=== PATIENT | female | born 1935 | race African-American/Black ===

== ENCOUNTER 2017-04-12 13:40 | Emergency (ER) | payer MEDICARE ==
[~2017-04-12] VITALS: Ht 149.9 cm; Wt 88.5 kg
[~2017-04-12 13:40] MED LIST: NIFE30TA7 PO; TRIA1CAP3 PO
[2017-04-12] MEDS ORDERED: ACYC5CRE2 TP (14:31)
[2017-04-12] MEDS ORDERED: VALA1000 PO (14:31)
--- NOTE | 2017-04-12 14:31 | PHYS DOC ---
Past Medical History Past Medical History: COPD, Hypertension Past Surgical History: , Hysterectomy Additional Past Surgical Histo: EYE SURGERY, Alcohol Use: Rarely Drug Use: None Adult General Chief Complaint Chief Complaint: INSECT BITE HPI HPI Patient is a 81 year old female with a history of diabetes and hypertension presents the ED complaining of insect bite to right forehead. States she had been having some itching sensation to her right forehead and then she woke up with a tiny cluster on her right forehead. States the redness has been spreading to scalp but only on the one side of her head. Does not remember having been bitten by anything. Denies discharge, drainage, headache, neck pain , photophobia, fever, n/v, chest pain, or shortness of breath. Review of Systems Review of Systems Constitutional: Denies fever or chills [] Eyes: Denies change in visual acuity, redness, or eye pain [] HENT: Denies nasal congestion or sore throat [] Respiratory: Denies cough or shortness of breath [] Cardiovascular: No additional information not addressed in HPI [] GI: Denies abdominal pain, nausea, vomiting, bloody stools or diarrhea [] : Denies dysuria or hematuria [] Musculoskeletal: Denies back pain or joint pain [] Integument: Complains of skin lesions to right forehead. [] Neurologic: Denies headache, focal weakness or sensory changes [] Endocrine: Denies polyuria or polydipsia [] All other systems were reviewed and found to be within normal limits, except as documented in this note. Allergies Allergies Allergies Coded Allergies Type Severity Reaction Last Updated Verified No Known Drug Allergies 12/22/14 No Physical Exam Physical Exam Constitutional: Well developed, well nourished, no acute distress, non-toxic appearance. [] HENT: Normocephalic, atraumatic, bilateral external ears normal, oropharynx moist, no oral exudates, nose normal. [] Eyes: PERRLA, EOMI, conjunctiva normal, no discharge. [] Neck: Normal range of motion, no tenderness, supple, no stridor. [] Cardiovascular:Heart rate regular rhythm, no murmur [] Lungs & Thorax: Bilateral breath sounds clear to auscultation [] Skin: Warm, dry, ERYTHEMATOUS VESICULAR RASH TO RIGHT FOREHEAD AND SCALP (NO OCULAR INVOLVEMENT) IN DERMATOMAL DISTRIBUTION CONSISTENT WITH SHINGLES. [] Neurologic: Alert and oriented X 3, normal motor function, normal sensory function, no focal deficits noted. [] Psychologic: Affect normal, judgement normal, mood normal. [] Current Patient Data Vital Signs Vital Signs Date Time Temp Pulse Resp B/P (MAP) Pulse Ox O2 Delivery O2 Flow Rate FiO2 04/12/17 14:00 97.8 68 18 98 Room Air 97.8 EKG EKG [] Radiology/Procedures Radiology/Procedures [] Course & Med Decision Making Course & Med Decision Making Pertinent Labs and Imaging studies reviewed. (See chart for details) []Pain/itching before rash appearance to right forehead. No ocular involvement. History and exam consistent with shingles. WIll treat with Valcyclovir outpatient. Discussed follow-up for re-evaluation this week. Patient states she will follow-up with her PCP this week. Discussed reasons to return to the ED. Patient understands and agrees with plan. Family at bedside. Dragon Disclaimer Dragon Disclaimer This electronic medical record was generated, in whole or in part, using a voice recognition dictation system. Departure Departure Impression: Primary Impression: Shingles Disposition: HOME, SELF-CARE Condition: IMPROVED Referrals: MIRZA KNIGHT MD (PCP) Patient Instructions: Shingles Scripts Acyclovir (ZOVIRAX) 5 Gm Cream..g. 1 KEVIN TP , #5 GM Prov: MAHAMED WEI 04/12/17 Valacyclovir Hcl (VALACYCLOVIR) 1,000 Mg Tablet 1 TAB PO BID for 10 Days, #20 TAB 0 Refills Prov: MAHAMED WEI 04/12/17 MAHAMED WEI Apr 12, 2017 14:31
[2017-04-12 14:35] VITALS: BP 184/84
== END 2017-04-12 14:37 | disposition home or self-care (01) ==
LOC: ER 13:40
DX: B02.9 Zoster without complications (principal); J44.9 Chronic obstructive pulmonary disease, unspecified; I10 Essential (primary) hypertension; E11.9 Type 2 diabetes mellitus without complications
CPT/HCPCS: 99283

== ENCOUNTER 2018-07-04 09:17 | Day surgery (SDC) | payer MEDICARE ==
[~2018-07-04] VITALS: Ht 149.9 cm; Wt 89.4 kg
[~2018-07-04 09:17] MED LIST changes: +ACYC5CRE2 TP; +ASPI325T8 PO; +BUPIVACAINE MPF 0.5% 30 ML VIAL. ONE; +GABA600T7 PO; +GLUC1TAB44 PO; +GLYCOPYRROLATE 1 MG/5 ML VIAL. IV ONE; +HYDROmorphone 2 MG/ML VIAL IV PRN; +IV RINGERS,LACTATED 1000ML 1,000 ML IV SCH; +LATA2.5D3 EACHEYE; +LIDOCAINE 1% PF 2 ML VIAL. ID PRN; +LIDOCAINE 1% PF 30 ML VIAL. ONE; +MOME13HF2 IH; +MORPHINE SULFATE 4 MG/ML VIAL. IV PRN; +MULT1TAB52 PO; +NIFE60TA16 PO; +ONDANSETRON PF 4 MG/2 ML VIAL. IV PRN; +PRED2.5T PO; +PRED5DRO16 EACHEYE; +PROCHLORPERAZINE 10 MG/2 ML VIAL. IV PRN; +VALA1000 PO; +fentaNYL PF VIAL 100 MCG/2 ML VIAL IV PRN
[2018-07-04 10:14] LABS: BASO % 1 % (0-3); EOS # 0.3 x10^3/uL (0.0-0.7); EOS % 6 % (0-3); HEMOGLOBIN 12.5 g/dL (12.0-15.5); LYMPH # 1.1 x10^3/uL (1.0-4.8); LYMPH % 23 % (24-48); MEAN CORPUSCULAR HEMOGLOBIN 27 pg (25-35); MEAN CORPUSCULAR HGB CONC 32 g/dL (31-37); MEAN CORPUSCULAR VOLUME 84 fL (79-100); MONO # 0.3 x10^3/uL (0.0-1.1); MONO % 7 % (0-9); NEUT # 2.9 x10^3uL (1.8-7.7); NEUT % 63 % (31-73); PLATELET COUNT 243 x10^3/uL (140-400); RED BLOOD COUNT 4.63 x10^6/uL (3.50-5.40); RED CELL DISTRIBUTION WIDTH 14.6 % (11.5-14.5); WHITE BLOOD COUNT 4.6 x10^3/uL (4.0-11.0)
[2018-07-04 10:25] LABS: CALCIUM 9.5 mg/dL (8.5-10.1); CREATININE 0.8 mg/dL (0.6-1.0); GFR 83.1; POTASSIUM 4.1 mmol/L (3.5-5.1)
[2018-07-04] MEDS ORDERED: LIDOCAINE 2% PF 5 ML VIAL. ONE (11:23)
[2018-07-04] MEDS ORDERED: DEXAMETHASONE SOD PHOS 20 MG/5 ML VIAL. ONE (11:23)
[2018-07-04] MEDS ORDERED: ONDANSETRON PF 4 MG/2 ML VIAL. ONE (11:23)
[2018-07-04] MEDS ORDERED: PROPOFOL 20 ML IV ONE (11:23)
--- NOTE | 2018-07-04 11:53 | PDOC4 ---
Operative Note Operative Note SURGEON: EVELIN PRE OP DIAGNOSIS: HAMMER TOE LEFT 2ND POST OP DX: SAME PROCEDURE: 2ND TOE AMPUTATION LEFT FOOT ANESTHESIA: MAC WITH LOCAL HEMOSTASIS: LEFT ANKLE TOURNIQUET AT 250MMHG EBL:1ML MATERIALS: 4-0 NYLON. NO IMPLANTS INTRAOPERATIVE FINDINGS: CONSISTENT WITH DIAGNOSIS PATIENT TOLERATED BOTH ANESTHESIA AND PROCEDURE WELL WITH VSS AND VSI TO LEFT FOOT MARGARET WATERS DPM Jul 04, 2018 11:53
[2018-07-04] MEDS ORDERED: ceFAZolin SODIUM 1 GM VIAL ONE (12:24)
[2018-07-04] MEDS ORDERED: POVIDONE-IODINE 10% TOPICAL OINTMENT 28GM TUBE. TP ONE (12:24)
[2018-07-04] MEDS ORDERED: HYDR-3164 PO (13:08)
[2018-07-04] MEDS ORDERED: HYDROcodone/APAP 5/325MG 1 TAB TABLET ONE (13:11)
[2018-07-04] MEDS ORDERED: HYDROcodone/APAP 5/325MG 1 TAB TABLET PO ONE (13:15)
[2018-07-04 13:40] VITALS: BP 147/68
--- NOTE | 2018-07-04 13:43 | OP ---
DATE OF SURGERY: 07/04/2018 PREOPERATIVE DIAGNOSIS: Painful hammertoe, left foot second digit. POSTOPERATIVE DIAGNOSIS: Painful hammertoe, left foot second digit. PROCEDURE: Second digit amputation to the level of the metatarsophalangeal joint, left foot. SURGEON: Virgilio Amezcua DPM. ANESTHESIA: MAC with local. HEMOSTASIS: Left ankle tourniquet at 250 mmHg. ESTIMATED BLOOD LOSS: 1 mL. INDICATIONS: The patient is an 83-year-old female with chronic recurrent pain to the second digit of the left foot. She also has a severe bunion deformity and remaining hammertoes; however, she has no pain other than the second digit discussed today. Discussed with patient the preoperative diagnosis possible risks, benefits and complications to include delayed healing, nonhealing, need for further surgery, transfer lesions, infection, DVT, pulmonary embolism. Also discussed alternate treatment options to include continued conservative treatment with extra depth shoe gear and accommodative padding as well as a more involved forefoot reconstructive surgery. The patient agreed to above procedure. No guarantees were made. Consent signed freely and put in chart. DESCRIPTION OF PROCEDURE: The patient was transported to the operating room via cart and placed on the operating table in supine position. The patient was given IV Ancef preoperatively. Timeout was taken to confirm the patient and surgery to be performed. A well-padded tourniquet was placed over the left ankle and a second ray block was given consisting of a 1:1 mixture of 1% lidocaine plain and 0.5% Marcaine plain, 10 mL to start. The left foot was then prepped and draped in the usual aseptic manner. Attention was directed to the second digit. Esmarch bandage was used to exsanguinate the left foot and left ankle tourniquet was inflated to 250 mmHg. Used a towel clamp to check anesthesia of the second toe and noted the patient was still feeling pain, thus given additional 10 mL of 1:1 mixture of 1% lidocaine plain and 0.5% Marcaine plain. She still had pain and thus used an additional 12 mL of 1% lidocaine plain. The patient then was achieved anesthesia and a tennis racquet incision was made at the base of the second digit to the left foot. The small vessels were cauterized and the second digit was disarticulated at the level of the metatarsophalangeal joint. There were no signs of infection or sinus tracking. The second metatarsal head was white, glistening within normal limits. The second digit was disarticulated and removed in toto and sent to pathology. The wound was then copiously irrigated with sterile saline and was reapproximated with 3-0 Vicryl and 4-0 nylon. The patient tolerated both anesthesia and procedure well, was transported to the PACU with vital signs stable and vascular status intact to the left foot. She is to be minimal weightbearing, bathroom privileges only. We will take x-rays in the PACU, postoperatively and postop instructions are in the chart. VIRGILIO AMEZCUA DPM DR: Kyra JOB#: [id number] / [id number]
--- NOTE | 2018-07-04 13:49 | RAD ---
EXAM: Left foot, 3 views. HISTORY: Postoperative evaluation. Pain. COMPARISON: None. FINDINGS: 3 views of the left foot are obtained. There has been left second phalanx amputation. There is surrounding soft tissue gas and an overlying bandage due to recent surgery. There is hallux valgus and mild first metatarsal phalangeal osteoarthritis. There are third and fourth hammertoe deformities. There is a tiny plantar spur and enthesopathy at Achilles insertion. IMPRESSION: 1. Left second phalanx amputation. There is stranding soft tissue gas due to relative recent surgery. 2. 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 3. Third and fourth hammertoe deformities. Electronically signed by: Joann Ribera MD (07/04/2018 1:46 PM) [facility]
--- NOTE | 2018-07-07 09:10 | PATHOLOGY ---
[facility] Accession Number: [id number] . 01 Material submitted: . LEFT 2ND TOE . 01 Clinical history: . Hammertoe . 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 . (JPM:mml; 07/06/2018) QLM/07/06/2018 . 02 Electronically signed: . Dinh Ulloa MD, Pathologist NPI- [id number] . 01 Gross description: . The specimen is received in formalin, labeled "Yanelis Su, left second toe", is a distal digit, disarticulated through the MPJ measuring 5.0 cm from the proximal skin resection margin to distal tip and up to 1.7 cm in width. Extending above the proximal skin margin is a segment of bone measuring 1.8 cm in length and consist of a concave articular surface measuring 1.0 x 1.0 cm (proximal bone margin). The specimen shows a hammertoe deformity of the middle interphalangeal joint with the overlying skin having a thickened area measuring 0.6 x 0.5 cm that is 1.7 cm from the proximal skin and approximately 3.2 cm from the proximal bone margin. The skin is samayoa-brown and the toenail is munguia-yellow. Sectioning through the skin lesion shows samayoa-white tissue with no discrete hemorrhage or necrosis. Binder Cutter tissue is submitted as follows: A1. Proximal skin margin A2. Proximal bone margin after decalcification. A3. Ulcer and underlying middle interphalangeal joint, after decalcification. (SWS; 07/04/2018) SHS/SHS . 02 Pathologist provided ICD-10: L85.8, M20.42 . 02 CPT . 112288, 335492 Specimen Comment: A courtesy copy of this report has been sent to Specimen Comment: [phone], . Specimen Comment: Report sent to / DR KNIGHT Performed at: [address] [facility], [place] [id number] MD Dmitry Gusman MD Phone: [phone] Performed at: [facility] [address] [place] [id number] MD Dinh Ulloa MD Phone: [phone]
== END 2018-07-04 13:55 | disposition home or self-care (01) ==
LOC: SURG 09:17
PROVIDERS: ATTEND Podiatrist Foot & Ankle Surgery
DX: M20.42 Other hammer toe(s) (acquired), left foot (principal); I10 Essential (primary) hypertension; M19.072 Primary osteoarthritis, left ankle and foot; J44.9 Chronic obstructive pulmonary disease, unspecified; Z90.710 Acquired absence of both cervix and uterus; Z79.899 Other long term (current) drug therapy; M35.3 Polymyalgia rheumatica; Z87.891 Personal history of nicotine dependence; Z88.1 Allergy status to other antibiotic agents
CPT/HCPCS: 28820; 36415; 73630; 80048; 85025; 88305; 88311; J0690; J2001; J2704; J3490; J1100; J2405

== ENCOUNTER 2019-03-06 04:28 | Inpatient (IN) | payer MEDICARE ==
[~2019-03-06] VITALS: Ht 152.4 cm; Wt 90.7 kg
[~2019-03-06 04:28] MED LIST changes: -BUPIVACAINE MPF 0.5% 30 ML VIAL. ONE; -GLYCOPYRROLATE 1 MG/5 ML VIAL. IV ONE; +HYDR-3164 PO; -HYDROmorphone 2 MG/ML VIAL IV PRN; -IV RINGERS,LACTATED 1000ML 1,000 ML IV SCH; -LIDOCAINE 1% PF 2 ML VIAL. ID PRN; -LIDOCAINE 1% PF 30 ML VIAL. ONE; -MORPHINE SULFATE 4 MG/ML VIAL. IV PRN; -ONDANSETRON PF 4 MG/2 ML VIAL. IV PRN; -PROCHLORPERAZINE 10 MG/2 ML VIAL. IV PRN; -fentaNYL PF VIAL 100 MCG/2 ML VIAL IV PRN
[2019-03-06 04:53] LABS: BASO % 1 % (0-3); EOS % 0 % (0-3); HEMATOCRIT 36.5 % (36.0-47.0); HEMOGLOBIN 11.8 g/dL (12.0-15.5); LYMPH # 0.7 x10^3/uL (1.0-4.8); LYMPH % 8 % (24-48); MEAN CORPUSCULAR HEMOGLOBIN 27 pg (25-35); MEAN CORPUSCULAR HGB CONC 32 g/dL (31-37); MEAN CORPUSCULAR VOLUME 84 fL (79-100); MONO # 0.4 x10^3/uL (0.0-1.1); MONO % 4 % (0-9); NEUT # 8.1 x10^3/uL (1.8-7.7); NEUT % 88 % (31-73); PLATELET COUNT 295 x10^3/uL (140-400); RED BLOOD COUNT 4.37 x10^6/uL (3.50-5.40); RED CELL DISTRIBUTION WIDTH 14.7 % (11.5-14.5); WHITE BLOOD COUNT 9.2 x10^3/uL (4.0-11.0)
[2019-03-06] MEDS ORDERED: IPRATRPIUM/ALBUTEROL 0.5/2.5MG 3 ML NEBU. NEB ONE (05:00)
[2019-03-06] MEDS ORDERED: methylPREDNISolone SOD SUCC PF 125 MG/2 ML VIAL. IV ONE (05:00)
[2019-03-06 05:03] LABS: CALCIUM 9.1 mg/dL (8.5-10.1); CREATININE 1.4 mg/dL (0.6-1.0); GFR 43.6; POTASSIUM 3.5 mmol/L (3.5-5.1)
--- NOTE | 2019-03-06 05:04 | RAD ---
PORTABLE CHEST 1V Clinical History: Hypoxia Technique: AP view of the chest was obtained at 03/06/2019 4:46 AM. Comparison: December 23, 2014. Findings: The heart is mildly enlarged. The pulmonary vessels are top normal limits in size. There is patchy opacity in the lung bases. Impression: Mild basal infiltrates could be discoid atelectasis or fluid overload. Electronically signed by: Juve Gloria III, MD (03/06/2019 5:01 AM) [facility]
[2019-03-06 05:08] LABS: ALBUMIN/GLOBULIN RATIO 0.7 (1.0-1.7); TOTAL BILIRUBIN 0.5 mg/dL (0.2-1.0); TOTAL PROTEIN 7.4 g/dL (6.4-8.2)
[2019-03-06 05:10] LABS: BASE EXCESS COOX 6 mmol/L (-3-3); HCO3 COOX 32 mmol/L (21-28); METHEMOGLOBIN 0.5 % (0.0-1.9); OXYHEMOGLOBIN 79.7 %; PCO2 COOX 52 mmHg (35-46); SAT O2 COOX 81 % (92-99)
[2019-03-06 05:11] LABS: PO2 COOX 47 mmHg (65-108)
--- NOTE | 2019-03-06 05:13 | PHYS DOC ---
Past Medical History Past Medical History: COPD, Hypertension Past Surgical History: , Hysterectomy Additional Past Surgical Histo: EYE SURGERY, Alcohol Use: Rarely Drug Use: None Adult General Chief Complaint Chief Complaint: SHORTNESS OF BREATH HPI HPI Patient is a 83 year old female presents to the due to chief complaint of shortness of breath. Patient states that this is going on for the last 2 days. Patient states that she uses her inhaler at home prior to coming to the ED. Earline ent denies fever, chills, nausea or vomiting. Patient denies chest pain. Patient states that she uses 2 L oxygen at home. Review of Systems Review of Systems Constitutional: Denies fever or chills [] Eyes: Denies change in visual acuity, redness, or eye pain [] HENT: Denies nasal congestion or sore throat [] Respiratory: Complains of cough and shortness of breath Cardiovascular: Denies chest pain GI: Denies abdominal pain, nausea, vomiting, bloody stools or diarrhea [] : Denies dysuria or hematuria [] Neurologic: Denies headache, focal weakness or sensory changes [] All other systems were reviewed and found to be within normal limits, except as documented in this note. Current Medications Current Medications Current Medications Medications (Trade) Dose Ordered Sig/Garry Start Time Stop Time Status Last Admin Dose Admin Albuterol/ Ipratropium (Duoneb) 3 ml 1X ONCE 03/06/19 05:00 03/06/19 05:01 DC 03/06/19 05:02 3 ML Azithromycin (Zithromax) 500 mg 1X ONCE 03/06/19 05:30 03/06/19 05:31 DC Ceftriaxone Sodium (Rocephin) 1 gm 1X ONCE 03/06/19 05:30 03/06/19 05:31 DC Methylprednisolone Sodium Succinate (SOLU-Medrol 125MG VIAL) 125 mg 1X ONCE 03/06/19 05:00 03/06/19 05:01 DC 03/06/19 05:01 125 MG Allergies Allergies Allergies Coded Allergies Type Severity Reaction Last Updated Verified tetracycline Allergy Intermediate Unknown 07/04/18 Yes Physical Exam Physical Exam Constitutional: Well developed, well nourished, no acute distress, non-toxic appearance. [] HENT: Normocephalic, atraumatic Neck: Normal range of motion, no tenderness, supple Cardiovascular:Heart rate regular rhythm Lungs & Thorax: Decreased breath sounds bilaterally Abdomen: Bowel sounds normal, soft, no tenderness Extremities: No tenderness, no cyanosis, no clubbing, ROM intact Neurologic: Alert and oriented X 3 Current Patient Data Vital Signs Vital Signs Date Time Temp Pulse Resp B/P (MAP) Pulse Ox O2 Delivery O2 Flow Rate FiO2 03/06/19 05:09 94 BiPAP/CPAP 03/06/19 04:57 99.3 79 20 127/55 (79) 99.3 Lab Values Laboratory Tests Test 03/06/19 04:35 03/06/19 05:03 White Blood Count 9.2 x10^3/uL (4.0-11.0) Red Blood Count 4.37 x10^6/uL (3.50-5.40) Hemoglobin 11.8 g/dL (12.0-15.5) L Hematocrit 36.5 % (36.0-47.0) Mean Corpuscular Volume 84 fL (79-100) Mean Corpuscular Hemoglobin 27 pg (25-35) Mean Corpuscular Hemoglobin Concent 32 g/dL (31-37) Red Cell Distribution Width 14.7 % (11.5-14.5) H Platelet Count 295 x10^3/uL (140-400) Neutrophils (%) (Auto) 88 % (31-73) H Lymphocytes (%) (Auto) 8 % (24-48) L Monocytes (%) (Auto) 4 % (0-9) Eosinophils (%) (Auto) 0 % (0-3) Basophils (%) (Auto) 1 % (0-3) Neutrophils # (Auto) 8.1 x10^3/uL (1.8-7.7) H Lymphocytes # (Auto) 0.7 x10^3/uL (1.0-4.8) L Monocytes # (Auto) 0.4 x10^3/uL (0.0-1.1) Eosinophils # (Auto) 0.0 x10^3/uL (0.0-0.7) Basophils # (Auto) 0.0 x10^3/uL (0.0-0.2) Platelet Estimate Pending Prothrombin Time 14.0 SEC (11.7-14.0) Prothrombin Time INR 1.1 (0.8-1.1) Sodium Level 141 mmol/L (136-145) Potassium Level 3.5 mmol/L (3.5-5.1) Chloride Level 100 mmol/L (98-107) Carbon Dioxide Level 31 mmol/L (21-32) Anion Gap 10 (6-14) Blood Urea Nitrogen 24 mg/dL (7-20) H Creatinine 1.4 mg/dL (0.6-1.0) H Estimated GFR (Cockcroft-Gault) 43.6 BUN/Creatinine Ratio 17 (6-20) Glucose Level 190 mg/dL (70-99) H Calcium Level 9.1 mg/dL (8.5-10.1) Total Bilirubin 0.5 mg/dL (0.2-1.0) Aspartate Amino Transferase (AST) 24 U/L (15-37) Alanine Aminotransferase (ALT) 19 U/L (14-59) Alkaline Phosphatase 85 U/L (46-116) Troponin I Quantitative < 0.017 ng/mL (0.000-0.055) MC-Ahq-D-Type Natriuretic Peptide 2912 pg/mL (0-449) H Total Protein 7.4 g/dL (6.4-8.2) Albumin 3.0 g/dL (3.4-5.0) L Albumin/Globulin Ratio 0.7 (1.0-1.7) L O2 Saturation 81 % (92-99) L Arterial Blood pH 7.40 (7.35-7.45) Arterial Blood pCO2 at Patient Temp 52 mmHg (35-46) H Arterial Blood pO2 at Patient Temp 47 mmHg (65-108) *L Arterial Blood HCO3 32 mmol/L (21-28) H Arterial Blood Base Excess 6 mmol/L (-3-3) H Oxyhemoglobin 79.7 % Methemoglobin 0.5 % (0.0-1.9) Carbon Monoxide, Quantitative 0.9 % (0.0-1.9) FiO2 50 Laboratory Tests 03/06/19 04:35 Laboratory Tests 03/06/19 04:35 EKG EKG EKG interpretation: HR: 79 Sinus rhythm Regular intervals normal axis Nonspecific ST changes Radiology/Procedures Radiology/Procedures Ordered chest x-ray Impressions: Chest x-ray shows pulmonary vascular congestion. Course & Med Decision Making Course & Med Decision Making Pertinent Labs and Imaging studies reviewed. (See chart for details) Nurses report that when patient came to the ER her initial oxygenation saturation was in the 40s. Patient was speaking in full sentences even at that time. Patient was placed on nonrebreather and her oxygen saturation came up to 96%. On my examination patient is currently on a 50% oxygen. Patient had decreased breath sounds bilaterally. Patient was given a DuoNeb breathing treatment and Solu-Medrol in the ED. Chest x-ray shows possible pulmonary vascular congestion with possible infiltrates. Patient was given IV antibiotics in the ED. Labs are within normal limits. Patient's ABG showed that she had a PO2 of 46. Patient is placed on BiPAP. EKG does not show any acute changes. Troponin is negative. BNP is 2912. Patient will be admitted for further evaluation and treatment. I discussed results and plan of care patient and family Will discuss with hospitalist service for admission. Dragon Disclaimer Dragon Disclaimer This electronic medical record was generated, in whole or in part, using a voice recognition dictation system. Departure Departure Impression: Primary Impression: Acute dyspnea Additional Impression: Hypoxia Disposition: 09 ADMITTED INPATIENT Referrals: MIRZA KNIGHT MD (PCP) Problem Qualifiers DAV GRISSOM DO Mar 06, 2019 05:13
[2019-03-06] MEDS ORDERED: AZITHROMYCIN 250 MG TABLET. PO ONE (05:30)
[2019-03-06] MEDS ORDERED: cefTRIAXone IV Push 1 GM VIAL. IVP ONE (05:30)
[2019-03-06] MEDS ORDERED: FUROSEMIDE 40 MG/4 ML VIAL. IVP ONE (06:00)
--- NOTE | 2019-03-06 06:05 | EKG ---
[facility] [address] [place] [address] Test Date: 2019-03-06 Test Time: 05:00:24 Pat Name: ZHENG ROWLAND Department: Room: Gender: F Chief Technology Officer: : 1935 Requested By: DAV GRISSOM Order Number: [id number] Reading MD: Measurements Intervals [place] Rate: 79 P: CA: QRS: 3 QRSD: 98 T: 21 QT: 398 QTc: 457 Interpretive Statements ATRIAL FLUTTER ABNORMAL ECG RI6.01 No previous ECG available for comparison
[2019-03-06 06:40] VITALS: BP 117/60
[2019-03-06] MEDS ORDERED: HYDROcodone/APAP 5/325MG 1 TAB TABLET PO PRN (09:00)
--- NOTE | 2019-03-06 09:11 | PDOC ---
Provider Note Provider Note [id number] MIRZA KNIGHT MD Mar 06, 2019 09:11
--- NOTE | 2019-03-06 09:25 | HP ---
ADMIT DATE: 03/06/2019 CHIEF COMPLAINT: Shortness of breath. HISTORY OF PRESENT ILLNESS: This is an 83-year-old black female has a history of mild COPD, having quit smoking years ago and uses oxygen at night only. She has had increasing shortness of breath, fatigue and mild cough for last 3-4 days without sputum, blood, fever, chills or other particular complaints. Chest x-ray showed minimal basilar atelectasis, but she was hypoxic and started on Ventimask and BiPAP. Other labs look unremarkable. MEDICATIONS: Listed per the chart. ALLERGIES: TETRACYCLINE. SOCIAL HISTORY: , nonsmoker for greater than 20 years. Nondrinker. FAMILY HISTORY: Unremarkable. REVIEW OF SYSTEMS: No other complaints. OBJECTIVE: ENT: She has got BiPAP in place. NECK: No JVD, nodes or bruits. LUNGS: Decreased breath sounds. No wheezing or tachypnea. CARDIOVASCULAR: Regular rate. No murmur. ABDOMEN: Benign, soft and nontender. EXTREMITIES: 1+ ankle edema. Good pedal pulses, 2+ clubbing. No other findings. NEUROLOGIC: Physiologic, nonfocal. ASSESSMENT: Dyspnea, likely secondary to respiratory infection. Underlying chronic obstructive pulmonary disease with secondary hypoxia is present. Need to rule out the possibility of pulmonary emboli. PLAN: Rocephin, azithromycin, IV steroids and will do a D-dimer first. MIRZA KNIGHT MD DR: JONI/susannah JOB#: [id number] / [id number]
[2019-03-06 09:29] LABS: % BANDS 1 % (0-9); % LYMPHS 6 % (24-48); % MONOS 2 % (0-10); % SEGS 91 % (35-66)
[2019-03-06 09:30] LABS: PLT ESTIMATE ADEQUATE (ADEQUATE)
[2019-03-06 09:35] LABS: ANISOCYTOSIS PRESENT
[2019-03-06] MEDS: GABAPENTIN 300 MG CAPSULE. PO SCH ×3 (10:09→22:17)
[2019-03-06] MEDS: TRIAMTERENE/HCTZ 37.5/25MG TABLET. PO SCH (10:09)
[2019-03-06] MEDS: ASPIRIN 325 MG TABLET PO SCH (10:09)
[2019-03-06] MEDS: PANTOPRAZOLE 40 MG TABLET.DR. PO SCH (10:09)
[2019-03-06] MEDS: methylPREDNISolone SOD SUCC PF 40 MG/ML VIAL. IV SCH ×2 (10:09→22:16)
--- NOTE | 2019-03-06 10:33 | NUR ---
SS following for discharge planning. SS reviewed pt chart. Pt is from home and is currently on the BIPAP. Pt has oxygen services at home, but may need to be reassessed if needs have changed. SS will continue to follow for discharge planning.
[2019-03-06 11:00] VITALS: BP 125/65
[2019-03-06] MEDS: IPRATRPIUM/ALBUTEROL 0.5/2.5MG 3 ML NEBU. NEB SCH ×3 (11:24→19:54)
[2019-03-06 15:00] VITALS: BP 135/62
[2019-03-06 19:59] VITALS: BP 122/60
[2019-03-06] MEDS: DEXAMETHASONE 0.1% OPHTH SOLUTION 5ML BOTTLE. OU SCH (22:17)
[2019-03-06] MEDS: LATANOPROST 0.005% OPHTH SOLUTION 2.5ML BOTTLE. OU SCH (22:17)
[2019-03-06] MEDS: BENZOCAINE/MENTHOL LOZENGE. PO PRN (22:30)
--- NOTE | 2019-03-06 22:51 | RAD ---
EXAM: VENTILATION/PERFUSION SCINTIGRAPHY. HISTORY: Elevated d-dimer, hypoxia. Assess for pulmonary embolism. TECHNIQUE: 8.5 mCi Xe-133 was inhaled and ventilation images were obtained. 4.9 mCi Tc-99m MAA was injected intravenously and perfusion images were obtained in multiple projections. COMPARISON: Today's radiograph. FINDINGS: Ventilation images demonstrate mild radiotracer retention in the left upper lobe. There is relatively decreased ventilation in the left base which may reflect heart shadow or atelectasis. There is a moderate nonsegmental unmatched perfusion defect in the left upper lobe corresponding with the region of air trapping. There is a lesser defect within the anterior segment of the right upper lobe. IMPRESSION: 1. Intermediate probability for pulmonary embolism. However, moderate unmatched defects within the upper lobes are thought more likely to reflect changes of chronic obstructive pulmonary disease rather than pulmonary embolism. CTA could further exclude pulmonary embolism if there is persistent concern. Electronically signed by: Bessy Meehan MD (03/06/2019 10:48 PM) [facility]
[2019-03-06 23:45] VITALS: BP 103/54
[2019-03-07 03:40] VITALS: BP 152/72
[2019-03-07 07:00] VITALS: BP 138/67
[2019-03-07] MEDS: PANTOPRAZOLE 40 MG TABLET.DR. PO SCH (07:38)
[2019-03-07] MEDS: IPRATRPIUM/ALBUTEROL 0.5/2.5MG 3 ML NEBU. NEB SCH ×4 (07:51→20:44)
[2019-03-07] MEDS: TRIAMTERENE/HCTZ 37.5/25MG TABLET. PO SCH (08:39)
[2019-03-07] MEDS: ASPIRIN 325 MG TABLET PO SCH (08:39)
[2019-03-07] MEDS: cefTRIAXone IV Push 1 GM VIAL. IVP SCH (08:39)
[2019-03-07] MEDS: methylPREDNISolone SOD SUCC PF 40 MG/ML VIAL. IV SCH ×2 (08:39→20:27)
[2019-03-07] MEDS: GABAPENTIN 300 MG CAPSULE. PO SCH ×3 (08:41→20:27)
[2019-03-07] MEDS ORDERED: AZITHROMYCIN 500 MG in IV NORMAL SALINE 250ML 250 ML IV SCH (09:00)
--- NOTE | 2019-03-07 09:17 | PDOC ---
Provider Note Provider Note feels beter, less dyspnea and no sputum- vss, no temp, - vq inter. probabilty, needs ct angio to define dx- will repeat creat and reorder ct, rest same MIRZA KNIGHT MD Mar 07, 2019 09:17
[2019-03-07 09:39] LABS: CALCIUM 9.1 mg/dL (8.5-10.1); CREATININE 1.4 mg/dL (0.6-1.0); GFR 43.6; POTASSIUM 3.5 mmol/L (3.5-5.1)
[2019-03-07 11:00] VITALS: BP 120/57
[2019-03-07] MEDS: BENZOCAINE/MENTHOL LOZENGE. PO PRN (11:12)
[2019-03-07] MEDS ORDERED: IV NORMAL SALINE 250ML 250 ML IV ONE (13:00)
[2019-03-07] MEDS ORDERED: IOHEXOL 350 MG/ML 100 ML VIAL. IV ONE (13:15)
[2019-03-07] MEDS ORDERED: CONTRAST GIVEN. MC PRN (13:15)
[2019-03-07 15:00] VITALS: BP 121/54
--- NOTE | 2019-03-07 17:38 | RAD ---
CTA OF THE CHEST WITH AND WITHOUT CONTRAST Clinical indications: Abnormal V/Q lung scan. Dyspnea. Elevated d-dimer. Hypoxia. Technique: Noncontrast axial localizer was performed. After IV infusion of 75 cc of Omnipaque 350, helical CT scanning of the chest was performed using the CT pulmonary embolism protocol. A coronal MIP reconstruction was generated. PQRS compliance Statement One or more of the following individualized dose reduction techniques were utilized for this study: 1. Automated exposure control 2. Adjustment of the mA and/or kV according to patient size 3. Use of iterative reconstruction technique Comparison: No previous chest CT available. Findings: No pulmonary embolism is evident. No focal aneurysmal dilatation or dissection of the thoracic aorta is seen. The heart size is mildly enlarged. No pericardial effusion is seen. A small hiatal hernia is seen. No enlarged thoracic lymphadenopathy is evident. Calcified lymph nodes are seen within the subcarinal region due to old granulomatous disease. Bilateral emphysema is seen. There is a small consolidative infiltrate within the anterior basal segment of the left lower lobe. Moderate-sized consolidative infiltrates are seen within the posterior basal segment and anterior basal segment of the right lower lobe. Dilated bronchi secondary to bronchiectasis is seen within the infiltrate within the posterior basal segment of the right lower lobe. Smaller nodular lung infiltrate is seen within the inferior aspect of the lateral segment of the right middle lobe. Minimal right-sided pleural effusion is seen. No pneumothorax is seen. There is nodularity within the distal trachea. No adrenal mass is evident. No lytic process is seen. IMPRESSION: Bilateral lower lobe lung infiltrates and small infiltrate within the inferior aspect of the lateral segment of the right middle lobe. This may represent pneumonia or aspiration pneumonitis. Nodularity within the trachea may represent adherent mucus. Cardiomegaly. Small hiatal hernia. No pulmonary embolism. Electronically signed by: Best Mckeon MD (03/07/2019 5:36 PM) [facility]
[2019-03-07 19:31] VITALS: BP 124/58
[2019-03-07] MEDS: LACTOBACILLUS RHAMNOSUS GG 1 CAPSULE. PO SCH (20:27)
[2019-03-07] MEDS: DEXAMETHASONE 0.1% OPHTH SOLUTION 5ML BOTTLE. OU SCH (20:27)
[2019-03-07] MEDS: LATANOPROST 0.005% OPHTH SOLUTION 2.5ML BOTTLE. OU SCH (20:27)
[2019-03-07 22:20] VITALS: BP 119/61
[2019-03-08 02:05] VITALS: BP 133/69
[2019-03-08 07:00] VITALS: BP 140/74
[2019-03-08] MEDS: PANTOPRAZOLE 40 MG TABLET.DR. PO SCH (07:41)
[2019-03-08] MEDS: IPRATRPIUM/ALBUTEROL 0.5/2.5MG 3 ML NEBU. NEB SCH ×4 (08:13→20:16)
--- NOTE | 2019-03-08 08:51 | PDOC ---
Provider Note Provider Note ct shows no pe, still dry cough, no temp- will do po pred now, get echo- likely dc 03/09 MIRZA KNIGHT MD Mar 08, 2019 08:51
[2019-03-08] MEDS ORDERED: AZITHROMYCIN 250 MG TABLET. PO ONE (09:00)
[2019-03-08] MEDS: cefTRIAXone IV Push 1 GM VIAL. IVP SCH (09:03)
[2019-03-08] MEDS: predniSONE 20 MG TABLET PO SCH (09:03)
[2019-03-08] MEDS: GABAPENTIN 300 MG CAPSULE. PO SCH ×3 (09:04→21:01)
[2019-03-08] MEDS: LACTOBACILLUS RHAMNOSUS GG 1 CAPSULE. PO SCH ×2 (09:04→21:01)
[2019-03-08] MEDS: ASPIRIN 325 MG TABLET PO SCH (09:05)
[2019-03-08] MEDS: TRIAMTERENE/HCTZ 37.5/25MG TABLET. PO SCH (09:05)
[2019-03-08] MEDS: BENZOCAINE/MENTHOL LOZENGE. PO PRN (09:05)
[2019-03-08 11:00] VITALS: BP 149/78
--- NOTE | 2019-03-08 11:43 | CARD ---
MR#: [id number] Date of Study: 03/08/2019 Ordering Physician: MIRZA KNIGHT, Referring Physician: MIRZA KNIGHT, Tech: Elizabeth Jon APPROVED REPORT EXAM: Two-dimensional and M-mode echocardiogram with Doppler and color Doppler. Other Information Quality : AverageHR: 76bpm Technically limited study due to patient supine INDICATION COPD Dyspnea Congestive Heart Failure RISK FACTORS Hypertension 2D DIMENSIONS RVDd3.0 (2.9-3.5cm)Left Atrium(2D)4.6 (1.6-4.0cm) IVSd0.9 (0.7-1.1cm)Aortic Root(2D)3.2 (2.0-3.7cm) LVDd5.1 (3.9-5.9cm)LVOT Diameter2.1 (1.8-2.4cm) PWd1.2 (0.7-1.1cm)LVDs4.1 (2.5-4.0cm) FS (%) 20.3 %SV51.0 ml LVEF(%)41.3 (>50%) Aortic Valve AoV Peak Ever.177.1cm/sAoV VTI32.8cm AO Peak GR.12.5mmHgLVOT Peak Ever.98.3cm/s LVOT VTI 23.37cmAO Mean GR.6mmHg YAIR (VMAX)1.34wq1AOU (VTI)2.45cm2 AI P 1/2 Xmvk544kg Mitral Valve MV E Hwxkkzxc61.2cm/sMV DECEL ILRK450tt MV A Ubugpnhx742.8cm/sMV CVB55ov E/A Ratio0.8MVA (PHT)4.10cm2 TDI E/Lateral E'11.3E/Medial E'12.0 Pulmonary Valve PV Peak Phdgaein32.6cm/sPV Peak Grad.2mmHg Tricuspid Valve TR P. Vbrzoelp486eo/sRAP PXRUQVSV44hiUw TR Peak Gr.98ieBxUAIW97jsUy Pulmonary Vein S1 Wetteoht76.2cm/sD2 Iepecdwp41.5cm/s PVa pzayaalf166ildd LEFT VENTRICLE The left ventricle is normal size. There is mild to moderate concentric left ventricular hypertrophy. The left ventricular systolic function is normal and the ejection fraction is within normal range. E F 55% There is normal LV segmental wall motion. Transmitral Doppler flow pattern is Grade I-abnormal relaxation pattern. RIGHT VENTRICLE The right ventricle is normal size. There is normal right ventricular wall thickness. The right ventr icular systolic function is normal. ATRIA The left atrium is borderline dilated. The right atrium size is normal. The interatrial septum is int act with no evidence for an atrial septal defect or patent foramen ovale as noted on 2-D or Doppler i maging. AORTIC VALVE The aortic valve is calcified but opens well. Doppler and Color Flow revealed mild aortic regurgitati on. There is no significant aortic valvular stenosis. MITRAL VALVE The mitral valve is thickened but opens well. There is no evidence of mitral valve prolapse. There is no mitral valve stenosis. Doppler and Color-flow revealed mild mitral regurgitation. TRICUSPID VALVE The tricuspid valve is not well visualized. Doppler and Color Flow revealed trace to mild tricuspid r egurgitation with an estimated PAP of 64 mmHg. There is no tricuspid valve stenosis. PULMONIC VALVE The pulmonic valve is not well visualized. Doppler and Color Flow revealed no pulmonic valvular regur gitation. There is no pulmonic valvular stenosis. GREAT VESSELS The aortic root is normal in size. The IVC is dilated and collapses <50% with inspiration. PERICARDIAL EFFUSION There is no evidence of significant pericardial effusion. Critical Notification Critical Value: No <Conclusion> The left ventricular systolic function is normal and the ejection fraction is within normal range. EF 55% There is normal LV segmental wall motion. Doppler and Color Flow revealed trace to mild tricuspid regurgitation with an estimated PAP of 64 mmH g. Signed by : Virgilio Dave, Electronically Approved : 03/08/2019 11:42:57
[2019-03-08 15:00] VITALS: BP 157/74
[2019-03-08 19:00] VITALS: BP 121/63
[2019-03-08] MEDS: LATANOPROST 0.005% OPHTH SOLUTION 2.5ML BOTTLE. OU SCH (21:01)
[2019-03-08] MEDS: DEXAMETHASONE 0.1% OPHTH SOLUTION 5ML BOTTLE. OU SCH (21:01)
[2019-03-08 23:00] VITALS: BP 137/68
[2019-03-09 03:00] VITALS: BP 146/78
[2019-03-09] MEDS: IPRATRPIUM/ALBUTEROL 0.5/2.5MG 3 ML NEBU. NEB SCH ×2 (07:29→11:09)
[2019-03-09 07:33] VITALS: BP 148/83
[2019-03-09] MEDS: cefTRIAXone IV Push 1 GM VIAL. IVP SCH (08:19)
[2019-03-09] MEDS: TRIAMTERENE/HCTZ 37.5/25MG TABLET. PO SCH (08:19)
[2019-03-09] MEDS: ASPIRIN 325 MG TABLET PO SCH (08:19)
[2019-03-09] MEDS: LACTOBACILLUS RHAMNOSUS GG 1 CAPSULE. PO SCH (08:19)
[2019-03-09] MEDS: predniSONE 20 MG TABLET PO SCH (08:19)
[2019-03-09] MEDS: GABAPENTIN 300 MG CAPSULE. PO SCH (08:19)
[2019-03-09] MEDS: PANTOPRAZOLE 40 MG TABLET.DR. PO SCH (08:19)
--- NOTE | 2019-03-09 08:58 | PDOC ---
Provider Note Provider Note [id number] MIRZA KNIGHT MD Mar 09, 2019 08:58
[2019-03-09] MEDS: BENZOCAINE/MENTHOL LOZENGE. PO PRN (09:49)
[2019-03-09 10:21] VITALS: BP 138/70
--- NOTE | 2019-03-09 11:56 | DS ---
DATE OF DISCHARGE: 03/09/2019 HISTORY OF PRESENT ILLNESS: This is an 83-year-old black female with a history of oxygen-dependent chronic obstructive pulmonary disease, came in with cough, weakness, fatigue, and scant sputum production. CBC and chemistry profile were unremarkable except for GFR of 44 and BNP mildly elevated at 2900. No cultures were obtained. Chest x-ray showed bibasilar infiltrates. V/Q scan showed intermediate probability of pulmonary emboli, but CTA showed no sign of emboli with bilateral lower lobe infiltrates present. Echocardiogram showed excellent ejection fraction of 55% and a high pulmonary artery pressure consistent with her known chronic obstructive pulmonary disease. HOSPITAL COURSE: She was treated with intravenous Rocephin, azithromycin, and Solu-Medrol, and slowly improved. She has been afebrile, comfortable, switched to oral prednisone therapy, and is able to be followed as an outpatient at this point. FINAL DIAGNOSES: 1. Community-acquired pneumonia, bilateral lower lobes, etiology undetermined. 2. Chronic obstructive pulmonary disease, oxygen dependent. 3. Chronic kidney disease 3, stable. OPERATIONS, PROCEDURES, COMPLICATIONS, CONSULTATIONS: None. DISCHARGE INSTRUCTIONS: Augmentin 875 mg twice a day for 5 more days, prednisone taper over 6 days; rest of home medications remain the same; continue oxygen therapy as she does at home; follow up in 1 week to confirm immunization status. MIRZA KNIGHT MD DR: JONI/susannah JOB#: [id number] / [id number]
--- NOTE | 2019-03-09 13:20 | NUR ---
Discharge Note: ZHENG ROWLAND Discharge instructions and discharge home medications reviewed with Patient and a copy given. All questions have been answered and understanding verbalized. Patient instructed to follow up with Primary doctor in 1 week. The following instructions and handouts were given: Home oxygen use, COPD, Augmentin and prednisone tablets Discontinued lines and drains: Peripheral IV intact. Patient discharged to Home or Self Care with Family Member via Wheelchair
== END 2019-03-09 13:20 | disposition home or self-care (01) | DRG 177 ==
LOC: ER 04:28 → 2 NORTH 05:15
PROVIDERS: ADMIT Family Medicine; ATTEND Family Medicine
PROC: 5A09357 Assistance with Respiratory Ventilation, Less than 24 Consecutive Hours, Continuous Positive Airway Pressure (ICD-10-PCS; principal; 2019-03-06)
DX: J15.6 Pneumonia due to other Gram-negative bacteria (principal); J96.20 Acute and chronic respiratory failure, unspecified whether with hypoxia or hypercapnia; J44.0 Chronic obstructive pulmonary disease with (acute) lower respiratory infection; N18.3 Chronic kidney disease, stage 3 (moderate); I12.9 Hypertensive chronic kidney disease with stage 1 through stage 4 chronic kidney disease, or unspecified chronic kidney disease; Z90.710 Acquired absence of both cervix and uterus; Z99.81 Dependence on supplemental oxygen; Z88.8 Allergy status to other drugs, medicaments and biological substances; Z87.891 Personal history of nicotine dependence
CPT/HCPCS: 36415; 36600; 71045; 71275; 78582; 80048; 80053; 82805; 83880; 84484; 85007; 85025; 85379; 85610; 93005; 93306; 94640; 94660; 94760; 96374; 96375; A9540; A9558; J0456; J0696; J1940; J2920; J2930; J7050; J7512; J7620; Q0144; Q9967; 97116; 97530; 99285-25; G0378; J7030

== ENCOUNTER 2019-03-27 12:24 | Emergency (ER) | payer MEDICARE ==
[~2019-03-27] VITALS: Ht 152.4 cm; Wt 84.8 kg
[2019-03-27 12:30] VITALS: BP 152/88
[2019-03-27] MEDS ORDERED: OXYMETAZOLINE 0.05% NASAL SPRAY 30ML BOTTLE. NS ONE (12:45)
--- NOTE | 2019-03-27 12:49 | PHYS DOC ---
Past Medical History Past Medical History: COPD, Hypertension Past Surgical History: , Hysterectomy Additional Past Surgical Histo: EYE SURGERY, Smoking: Quit Greater Than 1 Year Alcohol Use: Rarely Drug Use: None Adult General Chief Complaint Chief Complaint: NOSEBLEED HPI HPI 82-year-old female presents with complaint of nosebleed from bilateral nares which started this morning. Patient reports had bent over when bleeding started. Patient reports she had developed pretty significant blood clots to bilateral nares when symptoms improved. Patient reports bleeding again started and therefore decided to present to the ER. Reports some bleeding in the back of her throat. Denies known trauma. Denies use of blood thinners. Patient reports she does wear supplemental oxygen at night which is not humidified. Denies dizziness or lightheadedness. Review of Systems Review of Systems Constitutional: Denies fever or chills Eyes: Denies redness or eye pain HENT: Reports epistaxis Respiratory: Denies cough or shortness of breath Cardiovascular: Denies chest pain or palpitations GI: Denies abdominal pain, nausea, or vomiting : Denies dysuria or hematuria Musculoskeletal: Denies back pain or joint pain Integument: Denies rash or skin lesions Neurologic: Denies headache, focal weakness or sensory changes Complete systems were reviewed and found to be within normal limits, except as documented in this note. Current Medications Current Medications Current Medications Medications (Trade) Dose Ordered Sig/Garry Start Time Stop Time Status Last Admin Dose Admin Oxymetazoline HCl (Afrin) 2 spray 1X ONCE 03/27/19 12:45 03/27/19 12:46 DC 03/27/19 13:17 2 SPRAY Allergies Allergies Allergies Coded Allergies Type Severity Reaction Last Updated Verified tetracycline Allergy Intermediate Unknown 07/04/18 Yes Physical Exam Physical Exam Constitutional: Well developed, well nourished, no acute distress, non-toxic appearance HENT: Normocephalic, atraumatic, oropharynx moist, blood clots with some oozing from both nares, no nasal swelling or ecchymosis, blood streaks noted in pharynx Eyes: Conjunctiva normal, no discharge Neck: Normal range of motion, no tenderness, supple Cardiovascular: Heart rate normal, regular rhythm Lungs & Thorax: Bilateral breath sounds clear to auscultation, no wheezing Skin: Warm, dry, no erythema, no rash Extremities: No tenderness, ROM intact, no edema Neurologic: Alert and oriented X 3, no focal deficits noted Psychologic: Affect normal, judgement normal Current Patient Data Vital Signs Vital Signs Date Time Temp Pulse Resp B/P (MAP) Pulse Ox O2 Delivery O2 Flow Rate FiO2 03/27/19 12:30 98.6 85 20 152/88 (109) 92 Room Air 98.6 EKG EKG [] Radiology/Procedures Radiology/Procedures [] Course & Med Decision Making Course & Med Decision Making Patient presents for epistaxis which is likely secondary to use of on humidified supplemental O2 at night. Blood clots self expressed from bilateral nares by patient. This was followed by 2 sprays of Afrin utilized with nasal clamp 15 minutes. Patient with subsequent resolution of further bleeding. No history of use of blood thinners. Patient stable for discharge with outpatient follow-up with PCP/ENT. Discussed findings and plan with patient and family, who acknowledge understanding and agreement. Dragon Disclaimer Dragon Disclaimer This electronic medical record was generated, in whole or in part, using a voice recognition dictation system. Departure Departure Impression: Primary Impression: Epistaxis Disposition: HOME, SELF-CARE Condition: IMPROVED Referrals: MIRZA KNIGHT MD (PCP) MIRANDA KNIGHT MD Patient Instructions: Nosebleed, Ajss-iy-Ljub Additional Instructions: For any further bleeding: Blow out any blood clots then spray Afrin nasal spray (2 sprays to each nostril). Apply nasal clamp for 15 mins. Release clamp. If bleeding still present then repeat x 2. If persistent bleeding after 3 attempts then return to ED for further evaluation and management. Scripts Sodium Chloride (OCEAN) 104 Ml [place] 2 SPRAYS NS QID, #1 BOTTLE [place] each nostril 2 sprays Prov: ROBBIN BOLDEN DO 03/27/19 ROBBIN BOLDEN DO Mar 27, 2019 12:48
[2019-03-27] MEDS ORDERED: SODI104S NS (13:40)
== END 2019-03-27 14:15 | disposition home or self-care (01) ==
LOC: ER 12:24
DX: R04.0 Epistaxis (principal); J44.9 Chronic obstructive pulmonary disease, unspecified; I10 Essential (primary) hypertension; Z87.891 Personal history of nicotine dependence; Z88.1 Allergy status to other antibiotic agents
CPT/HCPCS: 99282

== ENCOUNTER 2019-03-30 13:57 | Emergency (ER) | payer MEDICARE ==
[~2019-03-30] VITALS: Ht 149.9 cm; Wt 84.8 kg
[~2019-03-30 13:57] MED LIST changes: +SODI104S NS
[2019-03-30 14:16] VITALS: BP 148/63
--- NOTE | 2019-03-30 14:44 | PHYS DOC ---
Past Medical History Past Medical History: COPD, Hypertension Past Surgical History: , Hysterectomy Additional Past Surgical Histo: EYE SURGERY, Alcohol Use: Rarely Drug Use: None Adult General Chief Complaint Chief Complaint: NOSEBLEED HPI HPI Patient is a 83 year old female who presents with with nosebleed this started about 9:30 AM. The patient states that she uses 2 L of oxygen at home while sleeping. The patient has had 2 nosebleeds this week. States that she is using oxygen at home for 4 years. Denies any other symptoms. Review of Systems Review of Systems Constitutional: Denies fever or chills [] Eyes: Denies change in visual acuity, redness, or eye pain [] HENT: Reports nose bleed. Respiratory: Denies cough or shortness of breath [] Cardiovascular: No additional information not addressed in HPI [] GI: Denies abdominal pain, nausea, vomiting, bloody stools or diarrhea [] : Denies dysuria or hematuria [] Musculoskeletal: Denies back pain or joint pain [] Integument: Denies rash or skin lesions [] Neurologic: Denies headache, focal weakness or sensory changes [] Endocrine: Denies polyuria or polydipsia [] Complete systems were reviewed and found to be within normal limits, except as documented in this note. Allergies Allergies Allergies Coded Allergies Type Severity Reaction Last Updated Verified tetracycline Allergy Intermediate Unknown 07/04/18 Yes Physical Exam Physical Exam Constitutional: Well developed, well nourished, no acute distress, non-toxic appearance. [] HENT: Normocephalic, atraumatic, bilateral external ears normal, oropharynx mois t, no oral exudates, nose has blood coming out of both nares. Eyes: PERRLA, EOMI, conjunctiva normal, no discharge. [] Neck: Normal range of motion, no tenderness, supple, no stridor. [] Cardiovascular:Heart rate regular rhythm, no murmur [] Lungs & Thorax: Bilateral breath sounds clear to auscultation [] Abdomen: Bowel sounds normal, soft, no tenderness, no masses, no pulsatile masses. [] Skin: Warm, dry, no erythema, no rash. [] Back: No tenderness, no CVA tenderness. [] Extremities: No tenderness, no cyanosis, no clubbing, ROM intact, no edema. [] Neurologic: Alert and oriented X 3, normal motor function, normal sensory function, no focal deficits noted. [] Psychologic: Affect normal, judgement normal, mood normal. [] Current Patient Data Vital Signs Vital Signs Date Time Temp Pulse Resp B/P (MAP) Pulse Ox O2 Delivery O2 Flow Rate FiO2 03/30/19 14:16 98.2 78 18 148/63 (91) 95 Room Air 98.2 Lab Values Laboratory Tests Test 03/30/19 15:25 White Blood Count 6.6 x10^3/uL (4.0-11.0) Red Blood Count 3.54 x10^6/uL (3.50-5.40) Hemoglobin 9.5 g/dL (12.0-15.5) L Hematocrit 29.6 % (36.0-47.0) L Mean Corpuscular Volume 84 fL (79-100) Mean Corpuscular Hemoglobin 27 pg (25-35) Mean Corpuscular Hemoglobin Concent 32 g/dL (31-37) Red Cell Distribution Width 15.7 % (11.5-14.5) H Platelet Count 214 x10^3/uL (140-400) Neutrophils (%) (Auto) 67 % (31-73) Lymphocytes (%) (Auto) 19 % (24-48) L Monocytes (%) (Auto) 7 % (0-9) Eosinophils (%) (Auto) 7 % (0-3) H Basophils (%) (Auto) 1 % (0-3) Neutrophils # (Auto) 4.4 x10^3/uL (1.8-7.7) Lymphocytes # (Auto) 1.2 x10^3/uL (1.0-4.8) Monocytes # (Auto) 0.5 x10^3/uL (0.0-1.1) Eosinophils # (Auto) 0.4 x10^3/uL (0.0-0.7) Basophils # (Auto) 0.1 x10^3/uL (0.0-0.2) Prothrombin Time 13.4 SEC (11.7-14.0) Prothrombin Time INR 1.1 (0.8-1.1) Activated Partial Thromboplast Time 30 SEC (24-38) Sodium Level 142 mmol/L (136-145) Potassium Level 3.1 mmol/L (3.5-5.1) L Chloride Level 102 mmol/L (98-107) Carbon Dioxide Level 33 mmol/L (21-32) H Anion Gap 7 (6-14) Blood Urea Nitrogen 24 mg/dL (7-20) H Creatinine 0.8 mg/dL (0.6-1.0) Estimated GFR (Cockcroft-Gault) 83.1 BUN/Creatinine Ratio 30 (6-20) H Glucose Level 110 mg/dL (70-99) H Calcium Level 9.1 mg/dL (8.5-10.1) Total Bilirubin 0.3 mg/dL (0.2-1.0) Aspartate Amino Transferase (AST) 17 U/L (15-37) Alanine Aminotransferase (ALT) 16 U/L (14-59) Alkaline Phosphatase 74 U/L (46-116) Total Protein 6.5 g/dL (6.4-8.2) Albumin 3.0 g/dL (3.4-5.0) L Albumin/Globulin Ratio 0.9 (1.0-1.7) L Laboratory Tests 03/30/19 15:25 Laboratory Tests 03/30/19 15:25 EKG EKG [] Radiology/Procedures Radiology/Procedures [] Course & Med Decision Making Course & Med Decision Making Pertinent Labs and Imaging studies reviewed. (See chart for details) Will get labs to check platelets. Platelets are 214. Hemoglobin is 9.5 which has dropped from the 11.3 last time she was here. Will have follow up with primary care provider. Nose bleed has stopped. Potassium was 3.1. Replaced potassium. Dragon Disclaimer Dragon Disclaimer This electronic medical record was generated, in whole or in part, using a voice recognition dictation system. Departure Departure Impression: Primary Impression: Epistaxis Additional Impressions: Anemia Hypokalemia Disposition: 01 HOME, SELF-CARE Condition: STABLE Referrals: MIRZA KNIGHT MD (PCP) Patient Instructions: Anemia, FAQs, Nosebleed Additional Instructions: Thank you for visiting [facility]. We appreciate you trusting us with your care. If any additional problems come up don't hesitate to return to visit us. Please follow up with your primary care provider so they can plan additional care if needed and know about the problem that you had. If symptoms worsen come back to the Emergency Department. Any concerning symptoms that start such as chest pain, shortness of air, weakness or numbness on one side of the body, running high fevers or any other concerning symptoms return to the ER. Problem Qualifiers Additional Impressions: Anemia Anemia type: unspecified type Qualified Codes: D64.9 - Anemia, unspecified ROBBIN TATE APRN Mar 30, 2019 14:44
[2019-03-30 15:49] LABS: PROTHROMBIN TIME PATIENT 13.4 SEC (11.7-14.0)
[2019-03-30 15:51] LABS: CALCIUM 9.1 mg/dL (8.5-10.1); CREATININE 0.8 mg/dL (0.6-1.0); GFR 83.1; POTASSIUM 3.1 mmol/L (3.5-5.1)
[2019-03-30 15:54] LABS: BASO # 0.1 x10^3/uL (0.0-0.2); BASO % 1 % (0-3); EOS # 0.4 x10^3/uL (0.0-0.7); EOS % 7 % (0-3); HEMATOCRIT 29.6 % (36.0-47.0); HEMOGLOBIN 9.5 g/dL (12.0-15.5); LYMPH # 1.2 x10^3/uL (1.0-4.8); LYMPH % 19 % (24-48); MEAN CORPUSCULAR HEMOGLOBIN 27 pg (25-35); MEAN CORPUSCULAR HGB CONC 32 g/dL (31-37); MEAN CORPUSCULAR VOLUME 84 fL (79-100); MONO # 0.5 x10^3/uL (0.0-1.1); MONO % 7 % (0-9); NEUT # 4.4 x10^3/uL (1.8-7.7); NEUT % 67 % (31-73); PLATELET COUNT 214 x10^3/uL (140-400); RED BLOOD COUNT 3.54 x10^6/uL (3.50-5.40); RED CELL DISTRIBUTION WIDTH 15.7 % (11.5-14.5); WHITE BLOOD COUNT 6.6 x10^3/uL (4.0-11.0)
[2019-03-30 15:57] LABS: ALBUMIN/GLOBULIN RATIO 0.9 (1.0-1.7); TOTAL BILIRUBIN 0.3 mg/dL (0.2-1.0); TOTAL PROTEIN 6.5 g/dL (6.4-8.2)
[2019-03-30] MEDS ORDERED: POTASSIUM CHLORIDE 20 MEQ TABLET.ER. PO STA (16:09)
== END 2019-03-30 16:27 | disposition home or self-care (01) ==
LOC: ER 13:57
DX: R04.0 Epistaxis (principal); D64.9 Anemia, unspecified; E87.6 Hypokalemia; I10 Essential (primary) hypertension; J44.9 Chronic obstructive pulmonary disease, unspecified; Z88.1 Allergy status to other antibiotic agents
CPT/HCPCS: 36415; 80053; 85025; 85610; 85730; 99284